=== PATIENT | female | born 1955 | race Caucasian/White ===

== ENCOUNTER 2024-06-09 10:21 | Outpatient (CLI) | payer MEDICARE ==
[~2024-06-09] VITALS: Ht 160 cm; Wt 77.6 kg
[2024-06-09] MEDS: albuterol 2.5 MG/3 ML nebule NEB PRN (12:08)
[2024-06-09 12:10] VITALS: PULSE 72; RESP 16; O2SAT 97
[2024-06-13 08:39] LABS: TOTAL HEMOGLOBIN 14.8 G/dl (12.0-16.0)
== END 2024-06-09 23:59 | disposition home or self-care (01) ==
LOC: RT 10:21
PROVIDERS: ATTEND Family Medicine
DX: R06.02 Shortness of breath (principal); J45.998 Other asthma
CPT/HCPCS: 85018; 94010; 94727; 94729; 94760